=== PATIENT | female | born 1970 | race African-American/Black ===

== ENCOUNTER 2018-07-16 07:17 | Day surgery (SDC) | payer OTHER ==
[2018-07-16] MEDS ORDERED: IRON SUCROSE INJECTION 200 MG in SODIUM CHLORIDE 100 ML IVPB ONE (10:00)
[2018-07-16 11:05] LABS: BASO % 0.6 % (0-2.0); EOS % 2.1 % (0-4.5); HEMATOCRIT 30.4 % (32.4-45.2); HEMOGLOBIN 9.8 GM/dL (10.7-15.3); LYMPH % 20.2 % (8-40); MCH 27.2 pg (25.7-33.7); MCHC 32.2 g/dl (32.0-36.0); MEAN CELL VOLUME 84.4 fl (80-96); MEAN PLT VOLUME 8.7 fl (7.5-11.1); MONO % 5.5 % (3.8-10.2); NEUT % 71.6 % (42.8-82.8); PLATELET COUNT 253 K/MM3 (134-434); RDW 19.5 % (11.6-15.6); WHITE BLOOD COUNT 6.8 K/mm3 (4.0-10.0)
[2018-07-16 11:43] LABS: ALBUMIN 3.5 g/dl (3.4-5.0); ALK PHOS 72 U/L (45-117); ANION GAP 6 MMOL/L (8-16); BILIRUBIN,DIRECT < 0.2 mg/dL (0.0-0.2); BILIRUBIN,TOTAL 0.4 mg/dL (0.2-1); BLOOD UREA NITROGEN 10 mg/dL (7-18); CALCIUM 8.2 mg/dL (8.5-10.1); CHLORIDE 103 mmol/L (98-107); CO2 29 mmol/L (21-32); CREATININE 0.7 mg/dL (0.55-1.3); GLUCOSE,RANDOM 80 mg/dL (74-106); MAGNESIUM 2.2 mg/dL (1.8-2.4); POTASSIUM 3.4 mmol/L (3.5-5.1); SGOT/AST 21 U/L (15-37); SGPT/ALT 17 U/L (13-61); SODIUM 138 mmol/L (136-145); TOT PROT 7.6 g/dl (6.4-8.2)
[2018-07-16 14:39] VITALS: BP 126/75; PULSE 59; TEMP 97.8
[2018-07-17 08:07] LABS: SERUM IRON SATURATION 11 % (15-55); TOTAL IRON BINDING CAPACITY 426 ug/dL (250-450); UIBC 381 ug/dL (131-425)
== END 2018-07-16 13:30 | disposition home or self-care (01) ==
LOC: JONCNONCHE 07:17 → J7W 11:48 → JONCNONCHE 13:30
PROVIDERS: ATTEND Internal Medicine Hematology & Oncology
PROC: 3E033GC Introduction of Other Therapeutic Substance into Peripheral Vein, Percutaneous Approach (ICD-10-PCS; principal; 2018-07-16)
DX: D50.9 Iron deficiency anemia, unspecified (principal)
CPT/HCPCS: 36415; 80053; 80076; 82607; 82728; 83540; 83550; 83735; 85025; 96365; J1756

== ENCOUNTER 2018-07-23 07:38 | Day surgery (SDC) | payer OTHER ==
[2018-07-23] MEDS ORDERED: IRON SUCROSE INJECTION 200 MG in SODIUM CHLORIDE 100 ML IVPB ONE (10:00)
[2018-07-23 13:16] VITALS: BP 132/71; PULSE 74; TEMP 97.9
== END 2018-07-23 11:20 | disposition home or self-care (01) ==
LOC: JONCNONCHE 07:38 → J7W 10:12 → JONCNONCHE 11:20
PROVIDERS: ATTEND Internal Medicine Hematology & Oncology
PROC: 3E033GC Introduction of Other Therapeutic Substance into Peripheral Vein, Percutaneous Approach (ICD-10-PCS; principal; 2018-07-23)
DX: D50.9 Iron deficiency anemia, unspecified (principal)
CPT/HCPCS: 96365; J1756

== ENCOUNTER 2018-08-06 07:36 | Day surgery (SDC) | payer OTHER ==
[2018-08-06] MEDS ORDERED: IRON SUCROSE INJECTION 200 MG in SODIUM CHLORIDE 100 ML IVPB ONE (10:00)
[2018-08-06 10:51] VITALS: PULSE 76; TEMP 98.6
[2018-08-06 12:11] VITALS: BP 127/72
== END 2018-08-06 11:15 | disposition home or self-care (01) ==
LOC: JONCNONCHE 07:36 → J7W 09:53 → JONCNONCHE 11:15
PROVIDERS: ATTEND Internal Medicine Hematology & Oncology
PROC: 3E033GC Introduction of Other Therapeutic Substance into Peripheral Vein, Percutaneous Approach (ICD-10-PCS; principal; 2018-08-06)
DX: D50.9 Iron deficiency anemia, unspecified (principal)
CPT/HCPCS: 96365; J1756

== ENCOUNTER 2018-08-20 07:31 | Day surgery (SDC) | payer OTHER ==
[2018-08-20] MEDS ORDERED: IRON SUCROSE INJECTION 200 MG in SODIUM CHLORIDE 100 ML IVPB ONE (09:00)
[2018-08-20 11:04] LABS: BASO % 0.7 % (0-2.0); EOS % 3.8 % (0-4.5); HEMATOCRIT 34.5 % (32.4-45.2); HEMOGLOBIN 11.4 GM/dL (10.7-15.3); LYMPH % 41.3 % (8-40); MCH 30.7 pg (25.7-33.7); MCHC 33.2 g/dl (32.0-36.0); MEAN CELL VOLUME 92.4 fl (80-96); MEAN PLT VOLUME 8.6 fl (7.5-11.1); MONO % 8.8 % (3.8-10.2); NEUT % 45.4 % (42.8-82.8); PLATELET COUNT 188 K/MM3 (134-434); RBC 3.73 M/mm3 (3.60-5.2); RDW 18.7 % (11.6-15.6); WHITE BLOOD COUNT 3.5 K/mm3 (4.0-10.0)
[2018-08-20 14:08] VITALS: TEMP 97.6
[2018-08-20 14:09] VITALS: BP 136/84; PULSE 56
[2018-08-21 08:06] LABS: SERUM IRON SATURATION 22 % (15-55); TOTAL IRON BINDING CAPACITY 343 ug/dL (250-450); UIBC 266 ug/dL (131-425)
--- NOTE | 2018-08-23 17:18 | PN ---
Progress Note (short form) - Note Progress Note: discussed with patient -- iron studies f/u in 6 weeks
== END 2018-08-20 12:15 | disposition home or self-care (01) ==
LOC: JONCNONCHE 07:31 → J7W 10:45 → JONCNONCHE 12:15
PROVIDERS: ATTEND Internal Medicine Hematology & Oncology
PROC: 3E033GC Introduction of Other Therapeutic Substance into Peripheral Vein, Percutaneous Approach (ICD-10-PCS; principal; 2018-08-20)
DX: D50.9 Iron deficiency anemia, unspecified (principal)
CPT/HCPCS: 36415; 82607; 82728; 83540; 83550; 85025; 96365; J1756

== ENCOUNTER 2019-01-12 07:08 | Day surgery (SDC) | payer OTHER ==
[2019-01-12] MEDS ORDERED: FERRIC CARBOXYMALTOSE 750 MG in SODIUM CHLORIDE 250 ML IVPB ONE (10:00)
[2019-01-12 16:02] VITALS: BP 127/80; PULSE 57
[2019-01-12 16:04] VITALS: TEMP 98.5
== END 2019-01-12 10:57 | disposition home or self-care (01) ==
LOC: JONCNONCHE 07:08 → J7W 09:09 → JONCNONCHE 10:57
PROVIDERS: ATTEND Internal Medicine Hematology & Oncology
PROC: 3E033GC Introduction of Other Therapeutic Substance into Peripheral Vein, Percutaneous Approach (ICD-10-PCS; principal; 2019-01-12)
DX: D50.9 Iron deficiency anemia, unspecified (principal)
CPT/HCPCS: 96365; J1439

== ENCOUNTER 2019-01-19 07:07 | Day surgery (SDC) | payer OTHER ==
[2019-01-19] MEDS ORDERED: FERRIC CARBOXYMALTOSE 750 MG in SODIUM CHLORIDE 250 ML IVPB ONE (09:00)
[2019-01-19 15:19] VITALS: TEMP 98.8
[2019-01-19 15:21] VITALS: BP 126/79; PULSE 74
== END 2019-01-19 11:00 | disposition home or self-care (01) ==
LOC: JONCCHEMO 07:07 → J7W 10:08 → JONCCHEMO 11:00
PROVIDERS: ATTEND Internal Medicine Hematology & Oncology
PROC: 3E033GC Introduction of Other Therapeutic Substance into Peripheral Vein, Percutaneous Approach (ICD-10-PCS; principal; 2019-01-19)
DX: D50.9 Iron deficiency anemia, unspecified (principal)
CPT/HCPCS: 96365; J1439

== ENCOUNTER 2019-03-27 12:11 | Emergency (ER) | payer OTHER | END 2019-03-27 15:18 | disposition home or self-care (01) | LOC: JER 12:11 ==

== ENCOUNTER 2019-09-30 13:28 | Day surgery (SDC) | payer OTHER ==
[2019-09-30] MEDS ORDERED: FERRIC CARBOXYMALTOSE 750 MG in SODIUM CHLORIDE 250 ML IVPB ONE (14:00)
[2019-09-30 17:59] VITALS: BP 115/72; PULSE 70; TEMP 98
== END 2019-09-30 15:15 | disposition home or self-care (01) ==
LOC: JONCNONCHE 13:28 → J7W 14:18 → JONCNONCHE 15:15
PROVIDERS: ATTEND Internal Medicine Hematology & Oncology
PROC: 3E033GC Introduction of Other Therapeutic Substance into Peripheral Vein, Percutaneous Approach (ICD-10-PCS; principal; 2019-09-30)
DX: D50.9 Iron deficiency anemia, unspecified (principal)
CPT/HCPCS: 96365; J1439

== ENCOUNTER 2019-10-07 06:37 | Day surgery (SDC) | payer OTHER ==
[2019-10-07] MEDS ORDERED: FERRIC CARBOXYMALTOSE 750 MG in SODIUM CHLORIDE 250 ML IVPB ONE (09:45)
[2019-10-07 16:22] VITALS: BP 154/88; PULSE 69; TEMP 98.4
== END 2019-10-07 13:15 | disposition home or self-care (01) ==
LOC: JONCCHEMO 06:37 → JONCNONCHE 06:37 → J7W 12:03 → JONCNONCHE 13:15
PROVIDERS: ATTEND Internal Medicine Hematology & Oncology
PROC: 3E033GC Introduction of Other Therapeutic Substance into Peripheral Vein, Percutaneous Approach (ICD-10-PCS; principal; 2019-10-07)
DX: D50.9 Iron deficiency anemia, unspecified (principal)
CPT/HCPCS: 96365; J1439

== ENCOUNTER 2019-10-25 18:01 | Emergency (ER) | payer OTHER ==
[2019-10-25 18:48] VITALS: BP 141/82; PULSE 57; TEMP 98.2; BMI 34.3
--- NOTE | 2019-10-25 18:48 | PDOC ---
Rapid Medical Evaluation Chief Complaint: Chest Pain Medical Evaluation: Allergies Allergy/AdvReac Type Severity Reaction Status Date / Time ethinyl estradiol Allergy Verified 10/25/19 18:43 [From Seasonale ()] levonorgestrel Allergy Verified 10/25/19 18:43 [From e ()] 10/25/19 18:46 Pt c/o: erasto sharp shooting leg pain x 1 week also goes to her chest intermittently Pt on brief exam: no calf tenderness or leg edema Pt ordered for: ble duplex Pt to proceed to the ED Discharge Disposition - Diagnosis Leg pain, bilateral - Referrals - Patient Instructions - Post Discharge Activity
[2019-10-25] MEDS ORDERED: ACETAMINOPHEN 325 MG TABLET (FP) PO ONE (20:57)
[2019-10-25] MEDS ORDERED: ACETAMINOPHEN 325 MG TABLET (FP) ONE (20:59)
--- NOTE | 2019-10-25 21:22 | PDOC ---
History of Present Illness - General Chief Complaint: Chest Pain Stated Complaint: CHEST PAIN Time Seen by Provider: 10/25/19 20:48 - History of Present Illness Initial Comments: The pt is a 48F w/ a no reported PMH who presents for evaluation of BLE pain and subjective swelling for 1 week who was told by her PCP that she may have a DVT and should be evaluated for such. She has yet to undergo her duplex. She reports BLE thigh and knee pain that is worse with walking/movement/touch and she has not tried any medications for her pain. She has never had this happen before. She also reports chest pain described as tightness, non-radiating, intermittent , non-exertional, and not associated with anything she can identify. 10/25/19 21:19 Past History - Past Medical History Allergies/Adverse Reactions: Allergies Allergy/AdvReac Type Severity Reaction Status Date / Time ethinyl estradiol Allergy Verified 10/25/19 18:43 [From Seasonale ()] levonorgestrel Allergy Verified 10/25/19 18:43 [From ()] Home Medications: Ambulatory Orders NK [No Known Home Medication] 03/27/19 Anemia: Yes COPD: No - Immunization History Immunization Up to Date: Yes - Psycho Social/Smoking Cessation Hx Smoking History: Never smoked Information on smoking cessation initiated: No Hx Alcohol Use: No Drug/Substance Use Hx: No Review of Systems - Review of Systems Able to Perform ROS?: Yes Comments:: GENERAL/CONSTITUTIONAL: No fever or chills HEAD, EYES, EARS, NOSE AND THROAT: No change in vision. No change in hearing. No sore throat CARDIOVASCULAR: No chest pain or shortness of breath RESPIRATORY: Denies cough, hemoptysis GASTROINTESTINAL: No nausea, vomiting, diarrhea or constipation GENITOURINARY: No dysuria, frequency, or change in urination MUSCULOSKELETAL: B/l thigh and knee pain SKIN: No rash NEUROLOGIC: No headache, vertigo, loss of consciousness, or change in strength/ sensation ENDOCRINE: No increased thirst. No abnormal weight change HEMATOLOGIC/LYMPHATIC: No anemia, easy bleeding, or history of blood clots ALLERGIC/IMMUNOLOGIC: No hives or skin allergy 10/25/19 21:14 Is the patient limited Slovak proficient: No *Physical Exam - Vital Signs Last Vital Signs Temp Pulse Resp BP Pulse Ox 98.2 F 57 L 17 141/82 100 10/25/19 18:43 10/25/19 18:43 10/25/19 18:43 10/25/19 18:43 10/25/19 18:43 - Physical Exam GENERAL: Awake, alert, and oriented to person/place/time, in no acute distress HEAD: No signs of trauma, normoc ephalic, atraumatic EYES: PERRLA, EOMI, sclera anicteric, conjunctiva clear ENT: Hearing grossly normal, nares patent, oropharynx clear without exudates. Moist mucosa LUNGS: No distress, speaks in full sentences, clear to auscultation bilaterally HEART: Regular rate and rhythm, normal S1 and S2, no murmurs appreciated, peripheral pulses normal and equal bilaterally ABDOMEN: Soft, nontender, normoactive bowel sounds. No guarding, no rebound EXTREMITIES: b/l knee medial and lateral TTP w/o underlying bony crepitus, swelling, or erythema; ambulating and ED NEUROLOGICAL: Cranial nerves II through XII grossly intact. Normal speech, no focal sensorimotor deficits SKIN: Warm, Dry 10/25/19 21:17 ED Treatment Course - LABORATORY CBC & Chemistry Diagram: 10/25/19 21:15 10/25/19 21:15 - RADIOLOGY Radiology Studies Ordered: Category Date Time Status CHEST X-RAY PORTABLE* [RAD] Stat Radiology 10/25/19 20:57 Ordered - Medications Given in the ED: ED Medications Discontinued Medications Generic Name Dose Route Start Last Admin Trade Name Freq PRN Reason Stop Dose Admin Acetaminophen 975 mg 10/25/19 20:57 10/25/19 21:02 Tylenol - PO 10/25/19 20:58 975 mg ONCE ONE Administration Medical Decision Making - Medical Decision Making The pt is a 48F w/ a no reported PMH who presents for evaluation of BLE pain and subjective swelling for 1 week who was told by her PCP that she may have a DVT and should be evaluated for such. She also has one week of intermittent chest tightness ED Course BLE duplex CMP, CBC, Trop I 10/25/19 21:22 No leukocytosis Anemia noted, no indication to transfuse at this time 10/25/19 21:53 Remainder of labs and US pending Pt signed out to night team Discharge - Discharge Information Problems reviewed: Yes Clinical Impression/Diagnosis: Leg pain, bilateral Chest pain Qualifiers: Chest pain type: unspecified Qualified Code(s): R07.9 - Chest pain, unspecified - Admission No - Follow up/Referral Referrals: ON STAFF,NOT [Primary Care Provider] - - Patient Discharge Instructions Patient Printed Discharge Instructions: DI for Chest Pain - Post Discharge Activity Work/Back to School Note: Back to Work
[2019-10-25 21:23] LABS: BASO % 1.3 % (0-2.0); EOS % 5.6 % (0-4.5); HEMATOCRIT 31.6 % (32.4-45.2); HEMOGLOBIN 10.3 GM/dL (10.7-15.3); LYMPH % 39.9 % (8-40); MCH 29.8 pg (25.7-33.7); MCHC 32.7 g/dl (32.0-36.0); MEAN PLT VOLUME 8.2 fl (7.5-11.1); MONO % 7.4 % (3.8-10.2); NEUT % 45.8 % (42.8-82.8); PLATELET COUNT 208 K/MM3 (134-434); RBC 3.47 M/mm3 (3.60-5.2); RDW 21.5 % (11.6-15.6); WHITE BLOOD COUNT 4.3 K/mm3 (4.0-10.0)
[2019-10-25 21:53] LABS: BILIRUBIN,TOTAL 0.3 mg/dL (0.2-1); BLOOD UREA NITROGEN 10.2 mg/dL (7-18); CALCIUM 8.4 mg/dL (8.5-10.1); CREATININE 0.7 mg/dL (0.55-1.3); POTASSIUM 3.8 mmol/L (3.5-5.1); TOT PROT 7.5 g/dl (6.4-8.2)
[2019-10-25 22:34] LABS: ANISOCYTOSIS 2+; MACROCYTOSIS 1+
--- NOTE | 2019-10-25 23:05 | PDOC ---
Documentation entered by Akilah Dupont SCRIBE, acting as scribe for Aure Almaraz MD. Aure Almaraz MD: This documentation has been prepared by the Kiah hair Nirvannie, SCRIBE, under my direction and personally reviewed by me in its entirety. I confirm that the documentation accurately reflects all work, treatment, procedures, and medical decision making performed by me. Attending Attestation - Resident Resident Name: Clive Vazquez - ED Attending Attestation I have performed the following: I have examined & evaluated the patient, The case was reviewed & discussed with the resident, I agree w/resident's findings & plan, Exceptions are as noted - HPI HPI: 10/25/19 21:13 The patient is a 48 year old female, with a significant past medical history of anemia, who presents to the emergency department with blt LE pain described as a cramping onsetting in the left anterior radiating to the later then RLE with associated intermittent chest tightness. Patient was seen by her plastic surgeon today who advised her to report to the ED for r/o DVT. She denies any worsening or alleviating factors. She denies taking anything for the discomfort. She denies any exertional dyspnea, orthopnea, recent travel, or recent surgeries. Allergies: Ethinyl estradiol, Levonorgestrel Past surgical history: Blt breast reduction. x3. R knee arthroscopy. Social history: Nonsmoker. Denies EtOH use and recreational drug use. Primary Care Physician: Savage - Physicial Exam PE: 10/25/19 23:05 GENERAL: Well-appearing, well-nourished. No apparent distress. HEENT: Normocephalic, atraumatic. PERRL, EOM intact. CARDIOVASCULAR: Normal S1, S2. Regular rate and rhythm. PULMONARY: Clear to auscultation bilaterally. ABDOMEN: Soft, non-distended, non-tender. EXTREMITIES: Normal ROM in all four extremities. No gross deformities. SKIN: Warm, dry. No rash NEUROLOGICAL: No focal neurological deficits. - Medical Decision Making 10/26/19 00:05 This 48-year-old female had had 1 day of bilateral leg pain and she saw her primary care physician who wanted her to come to the emergency department to rule out clots in her legs She says she is also had chronic intermittent chest tightness but she has no acute shortness of breath, no substernal chest pain currently and no risk factors Duplex Dopplers of her 2 legs are negative for any deep vein thrombosis EKG did not show any ischemia Discharge - Discharge Information Problems reviewed: Yes Clinical Impression/Diagnosis: Leg pain, bilateral Chest pain Qualifiers: Chest pain type: unspecified Qualified Code(s): R07.9 - Chest pain, unspecified Condition: Stable Disposition: HOME - Admission No - Follow up/Referral Referrals: ON STAFF,NOT [Primary Care Provider] - - Patient Discharge Instructions Patient Printed Discharge Instructions: DI for Leg Pain, DI for Chest Pain Additional Instructions: Your ultrasound did not show any clots - Post Discharge Activity Work/Back to School Note: Back to Work
--- NOTE | 2019-10-26 09:52 | EKG ---
Test Reason : Blood Pressure : / mmHG Vent. Rate : 059 BPM Atrial Rate : 059 BPM P-R Int : 192 ms QRS Dur : 082 ms QT Int : 446 ms P-R-T Axes : 041 -07 016 degrees QTc Int : 441 ms SINUS BRADYCARDIA OTHERWISE NORMAL ECG NO PREVIOUS ECGS AVAILABLE Confirmed by SUKI ABDULLAHI, GINNA ([id number]) on 10/26/2019 9:52:13 AM Referred By: Confirmed By:GINNA COHN MD
== END 2019-10-25 23:10 | disposition home or self-care (01) ==
LOC: JER 18:01
DX: R07.9 Chest pain, unspecified (principal); M79.604 Pain in right leg; M79.605 Pain in left leg; Z86.2 Personal history of diseases of the blood and blood-forming organs and certain disorders involving the immune mechanism
CPT/HCPCS: 36415; 71045-TC-FY; 80053; 84484; 85025; 93005; 93010; 93970-TC; 99284-25

== ENCOUNTER 2020-11-02 19:53 | Emergency (ER) | payer OTHER ==
[2020-11-02 20:02] VITALS: BP 157/65; PULSE 76; TEMP 97; BMI 36.0
== END 2020-11-02 22:33 | disposition home or self-care (01) ==
LOC: JER 19:53
DX: K64.9 Unspecified hemorrhoids (principal)
CPT/HCPCS: 99283-25

== ENCOUNTER 2021-09-03 21:35 | Emergency (ER) | payer OTHER ==
[2021-09-03 22:13] VITALS: BP 150/83; PULSE 74; TEMP 97.8; BMI 35.6
[2021-09-03 22:57] LABS: BASO % 0.7 % (0-2.0); EOS % 6.2 % (0-4.5); HEMATOCRIT 21.2 % (32.4-45.2); LYMPH % 36.2 % (8-40); MCH 21.7 pg (25.7-33.7); MCHC 30.7 g/dl (32.0-36.0); MEAN CELL VOLUME 70.8 fl (80-96); MEAN PLT VOLUME 6.9 fl (7.5-11.1); MONO % 7.2 % (3.8-10.2); NEUT % 49.7 % (42.8-82.8); PLATELET COUNT 353 10^3/uL (134-434); RBC 2.99 M/mm3 (3.60-5.2); RDW 19.8 % (11.6-15.6); RETICULOCYTES 2.05 % (0.5-1.5); WHITE BLOOD COUNT 6.3 K/mm3 (4.0-10.0)
[2021-09-03 23:02] LABS: INR 1.07 (0.83-1.09)
[2021-09-03 23:04] LABS: ACTIVATED PTT 30.6 SECONDS (25.2-36.5); HEMOGLOBIN 6.5 GM/dL (10.7-15.3)
[2021-09-03 23:31] LABS: ANISOCYTOSIS 3+; MACROCYTOSIS 0
[2021-09-03 23:33] LABS: ALBUMIN 3.6 g/dl (3.4-5.0); BILIRUBIN,TOTAL 0.3 mg/dL (0.2-1); BLOOD UREA NITROGEN 9.8 mg/dL (7-18); CALCIUM 8.2 mg/dL (8.5-10.1); CREATININE 0.9 mg/dL (0.55-1.3); TOT PROT 7.4 g/dl (6.4-8.2)
== END 2021-09-04 00:07 | disposition home or self-care (01) ==
LOC: JER 21:35
DX: D50.0 Iron deficiency anemia secondary to blood loss (chronic) (principal)
CPT/HCPCS: 36415; 80053; 85025; 85045; 85610; 85730; 86850; 86900; 86901; 93005; 93010; 99283-25

== ENCOUNTER 2024-05-02 05:54 | Day surgery (SDC) | payer OTHER ==
[2024-04-29 08:46] VITALS: BMI 34.3
[2024-05-02] MEDS ORDERED: ONDANSETRON 4 MG/2 ML VIAL IVPUSH PRN (10:55)
[2024-05-02] MEDS ORDERED: oxyCODONE HCL 5 MG TABLET PO PRN ×2 (10:55→15:32)
[2024-05-02 14:02] LABS: HEMATOCRIT 27.9 % (32.4-45.2); HEMOGLOBIN 9.3 GM/dL (10.7-15.3); MCH 31.1 pg (25.7-33.7); MCHC 33.2 g/dl (32.0-36.0); MEAN CELL VOLUME 93.7 fl (80-96); MEAN PLT VOLUME 7.7 fl (7.5-11.1); PLATELET COUNT 291 10^3/uL (134-434); RBC 2.98 M/mm3 (3.60-5.2); RDW 13.8 % (11.6-15.6); WHITE BLOOD COUNT 5.4 K/mm3 (4.0-10.0)
[2024-05-02] MEDS ORDERED: LIDOCAINE HCL/PF 2% SDV 5ML VIAL ONE (14:57)
[2024-05-02] MEDS ORDERED: PROPOFOL 20 ML ONE (14:58)
[2024-05-02] MEDS ORDERED: MIDAZOLAM HCL 2 MG/2 ML SINGLE DOSE VIAL ONE (14:58)
[2024-05-02] MEDS ORDERED: DEXAMETHASONE SOD PHOSPHATE 4 MG/1 ML VIAL ONE (15:12)
[2024-05-02] MEDS: ceFAZolin SODIUM 1 GM VIAL IVPB ONE (15:12)
[2024-05-02] MEDS ORDERED: ceFAZolin SODIUM 1 GM VIAL ONE (15:12)
[2024-05-02] MEDS ORDERED: PROMETHAZINE HCL 25 MG/1 ML VIAL IVPB PRN (15:32)
[2024-05-02] MEDS ORDERED: ONDANSETRON 4 MG/2 ML VIAL ONE (15:33)
[2024-05-02] MEDS ORDERED: KETOROLAC TROMETHAMINE 30 MG/1 ML VIAL ONE (15:33)
[2024-05-02] MEDS: SILVER NITRATE 75% APPLIC STCK 1 PKT EACH TP ONE (15:37)
[2024-05-02] MEDS ORDERED: ACETAMINOPHEN INJECTION 100 ML IVPB ONE (15:59)
[2024-05-02] MEDS: ACETAMINOPHEN 1000 MG/100 ML BAG IVPB ONE (16:01)
[2024-05-02] MEDS: LACTATED RINGERS SOLUTION 1,000 ML IV SCH (16:02)
[2024-05-02 18:09] VITALS: RESP 18
[2024-05-02 18:16] VITALS: BP 136/74; PULSE 76; TEMP 97.1
== END 2024-05-02 18:46 | disposition home or self-care (01) ==
LOC: JASU-SURG 05:54
PROVIDERS: ATTEND Obstetrics & Gynecology
PROC: 0UDB8ZZ Extraction of Endometrium, Via Natural or Artificial Opening Endoscopic (ICD-10-PCS; principal; 2024-05-02 12:00)
DX: N92.1 Excessive and frequent menstruation with irregular cycle (principal); D25.9 Leiomyoma of uterus, unspecified; D64.9 Anemia, unspecified
CPT/HCPCS: 36415; 81025; 85027; 86850; 86900; 86901; 88305-TC; 94760; J0131

== ENCOUNTER 2024-08-05 18:20 | Inpatient (IN) | payer OTHER ==
[2024-08-05 18:28] VITALS: BMI 36.0
[2024-08-05 19:39] LABS: BASO % 0.7 % (0-2.0); HEMATOCRIT 18.1 % (32.4-45.2); LYMPH % 23.5 % (8-40); MCHC 32.7 g/dl (32.0-36.0); MEAN CELL VOLUME 88.5 fl (80-96); MEAN PLT VOLUME 6.9 fl (7.5-11.1); MONO % 5.6 % (3.8-10.2); NEUT % 69.2 % (42.8-82.8); PLATELET COUNT 313 10^3/uL (134-434); RBC 2.04 M/mm3 (3.60-5.2); RDW 17.8 % (11.6-15.6); WHITE BLOOD COUNT 7.4 K/mm3 (4.0-10.0)
[2024-08-05 20:01] LABS: CALCIUM 8.1 mg/dL (8.5-10.1)
[2024-08-05 20:02] LABS: ALBUMIN 3.6 g/dl (3.4-5.0); BLOOD UREA NITROGEN 9.2 mg/dL (7-18)
[2024-08-05 20:03] LABS: INR 0.98 (0.83-1.09); PROTHROMBIN TIME (PATIENT) 11.3 SEC (9.7-13.0)
[2024-08-05 20:04] LABS: HEMOGLOBIN 5.9 GM/dL (10.7-15.3)
[2024-08-05 20:05] LABS: CREATININE 0.9 mg/dL (0.55-1.3)
[2024-08-05 20:06] LABS: BILIRUBIN,TOTAL 0.3 mg/dL (0.2-1)
[2024-08-05 20:07] LABS: TOT PROT 6.8 g/dl (6.4-8.2)
[2024-08-05] MEDS ORDERED: POTASSIUM CHLORIDE TABS 20 MEQ TABLET.ER (FP) PO ONE (20:29)
[2024-08-05] MEDS ORDERED: MAGNESIUM 1GM/D5W - 1 GM/100 ML IVPB IVPB ONE (20:30)
[2024-08-05] MEDS: POTASSIUM CHLORIDE TABS 20 MEQ TABLET.ER (FP) PO ONE (20:37)
[2024-08-05] MEDS: MAGNESIUM 1GM/D5W - 1 GM/100 ML IVPB IVPB ONE (20:37)
[2024-08-05 21:03] LABS: HIV INTERPRETATION NEGATIVE (NEGATIVE)
[2024-08-06] MEDS ORDERED: POTASSIUM CHLORIDE TABS 20 MEQ TABLET.ER (FP) PO ONE (00:36)
[2024-08-06] MEDS: POTASSIUM CHLORIDE TABS 20 MEQ TABLET.ER (FP) PO ONE (00:45)
[2024-08-06 04:01] VITALS: RESP 18
[2024-08-06 08:58] LABS: POTASSIUM 3.9 mmol/L (3.5-5.1)
[2024-08-06 08:59] LABS: CALCIUM 7.8 mg/dL (8.5-10.1)
[2024-08-06 09:01] LABS: ALBUMIN 3.1 g/dl (3.4-5.0); BLOOD UREA NITROGEN 9.9 mg/dL (7-18)
[2024-08-06 09:03] LABS: HEMATOCRIT 22.4 % (32.4-45.2); HEMOGLOBIN 7.4 GM/dL (10.7-15.3); MCH 29.2 pg (25.7-33.7); MCHC 32.9 g/dl (32.0-36.0); MEAN CELL VOLUME 88.7 fl (80-96); MEAN PLT VOLUME 7.5 fl (7.5-11.1); PLATELET COUNT 266 10^3/uL (134-434); RBC 2.52 M/mm3 (3.60-5.2); RDW 16.2 % (11.6-15.6); WHITE BLOOD COUNT 6.9 K/mm3 (4.0-10.0)
[2024-08-06 09:04] LABS: CREATININE 0.7 mg/dL (0.55-1.3)
[2024-08-06 09:06] LABS: BILIRUBIN,TOTAL 0.6 mg/dL (0.2-1); TOT PROT 5.9 g/dl (6.4-8.2)
[2024-08-06] MEDS: FERROUS SO4 325 MG TABLET (FP) PO SCH (10:19)
[2024-08-06] MEDS: HYDROCHLOROTHIAZIDE 25 MG TABLET (FP) PO SCH (10:33)
[2024-08-06] MEDS: SODIUM CHLORIDE 1,000 ML IV SCH (11:19)
[2024-08-06] MEDS: medroxyPROGESTERone ACET 150 MG/1 ML VIAL IM ONE (11:40)
[2024-08-06] MEDS: SODIUM CHLORIDE 250 ML IV STA (15:11)
[2024-08-07 08:27] LABS: BASO % 0.5 % (0-2.0); EOS % 5.8 % (0-4.5); HEMATOCRIT 24.8 % (32.4-45.2); HEMOGLOBIN 8.3 GM/dL (10.7-15.3); LYMPH % 29.1 % (8-40); MCH 29.5 pg (25.7-33.7); MCHC 33.4 g/dl (32.0-36.0); MEAN CELL VOLUME 88.2 fl (80-96); MEAN PLT VOLUME 7.1 fl (7.5-11.1); MONO % 5.7 % (3.8-10.2); NEUT % 58.9 % (42.8-82.8); PLATELET COUNT 261 10^3/uL (134-434); RBC 2.82 M/mm3 (3.60-5.2); RDW 15.9 % (11.6-15.6); WHITE BLOOD COUNT 6.8 K/mm3 (4.0-10.0)
[2024-08-07 08:52] LABS: CALCIUM 8.1 mg/dL (8.5-10.1)
[2024-08-07 08:55] LABS: CREATININE 0.7 mg/dL (0.55-1.3)
[2024-08-07 09:07] VITALS: BP 112/59; PULSE 76; TEMP 98.6
[2024-08-07] MEDS: IRON SUCROSE INJECTION 200 MG in SODIUM CHLORIDE 100 ML IVPB ONE (11:24)
== END 2024-08-07 14:40 | disposition home or self-care (01) | DRG 663 ==
LOC: JER 18:20 → JERBED 20:08 → J6S 08-06 03:52
PROVIDERS: ADMIT Internal Medicine; ATTEND Internal Medicine
PROC: 30233N1 Transfusion of Nonautologous Red Blood Cells into Peripheral Vein, Percutaneous Approach (ICD-10-PCS; principal; 2024-08-06)
DX: D62 Acute posthemorrhagic anemia (principal); E66.01 Morbid (severe) obesity due to excess calories; I10 Essential (primary) hypertension; N92.0 Excessive and frequent menstruation with regular cycle; D25.9 Leiomyoma of uterus, unspecified; E87.6 Hypokalemia; Z68.36 Body mass index [BMI] 36.0-36.9, adult
CPT/HCPCS: 36415; 36430; 76830-TC; 80048; 80053; 84702; 85025; 85027; 85610; 85730; 86803; 87389; 93005; 93010; 99285-25; J1756; P9058

== ENCOUNTER 2024-09-03 18:34 | Inpatient (IN) | payer OTHER ==
[2024-09-03] MEDS ORDERED: ACETAMINOPHEN INJECTION 100 ML ONE (20:05)
[2024-09-03] MEDS: ACETAMINOPHEN 1000 MG/100 ML BAG IVPB ONE (20:22)
[2024-09-03 20:51] LABS: BASO % 0.3 % (0-2.0); EOS % 3.1 % (0-4.5); HEMATOCRIT 28.5 % (32.4-45.2); HEMOGLOBIN 9.4 GM/dL (10.7-15.3); LYMPH % 23.4 % (8-40); MCH 30.2 pg (25.7-33.7); MCHC 33.1 g/dl (32.0-36.0); MEAN CELL VOLUME 91.3 fl (80-96); MEAN PLT VOLUME 7.8 fl (7.5-11.1); MONO % 6.7 % (3.8-10.2); NEUT % 66.5 % (42.8-82.8); PLATELET COUNT 217 10^3/uL (134-434); RBC 3.13 M/mm3 (3.60-5.2); RDW 15.8 % (11.6-15.6); WHITE BLOOD COUNT 8.2 K/mm3 (4.0-10.0)
[2024-09-03 21:11] LABS: ACTIVATED PTT 31.7 SECONDS (25.2-36.5); INR 1.02 (0.83-1.09); PROTHROMBIN TIME (PATIENT) 11.5 SEC (9.7-13.0)
[2024-09-03] MEDS ORDERED: ACETAMINOPHEN 1000 MG/100 ML BAG IVPB PRN (23:42)
[2024-09-04 00:01] LABS: CHLORIDE 105 mmol/L (98-107); SODIUM 140 mmol/L (136-145)
[2024-09-04 00:03] LABS: CALCIUM 8.9 mg/dL (8.5-10.1)
[2024-09-04 00:04] LABS: ALBUMIN 3.6 g/dl (3.4-5.0); BLOOD UREA NITROGEN 8.6 mg/dL (7-18); CO2 28 mmol/L (21-32); GLUCOSE,RANDOM 102 mg/dL (74-106)
[2024-09-04 00:07] LABS: CREATININE 0.9 mg/dL (0.55-1.3); SGOT/AST 14 U/L (15-37); SGPT/ALT 24 U/L (13-61)
[2024-09-04 00:08] LABS: BILIRUBIN,TOTAL 0.2 mg/dL (0.2-1); TOT PROT 6.8 g/dl (6.4-8.2)
[2024-09-04 00:10] LABS: ALK PHOS 63 U/L (45-117)
[2024-09-04 00:22] VITALS: BMI 33.5
[2024-09-04 00:28] LABS: ANION GAP 7 mmol/L (4-13); POTASSIUM 2.9 mmol/L (3.5-5.1)
[2024-09-04] MEDS: POTASSIUM CHLORIDE ORAL LIQUID 20 MEQ/15 ML PO ONE (01:18)
[2024-09-04 07:58] LABS: BASO % 0.6 % (0-2.0); EOS % 4.4 % (0-4.5); HEMATOCRIT 25.2 % (32.4-45.2); HEMOGLOBIN 8.5 GM/dL (10.7-15.3); LYMPH % 27.5 % (8-40); MCH 30.7 pg (25.7-33.7); MCHC 33.8 g/dl (32.0-36.0); MEAN CELL VOLUME 90.6 fl (80-96); MEAN PLT VOLUME 7.7 fl (7.5-11.1); MONO % 7.2 % (3.8-10.2); NEUT % 60.3 % (42.8-82.8); PLATELET COUNT 201 10^3/uL (134-434); RBC 2.78 M/mm3 (3.60-5.2); RDW 15.8 % (11.6-15.6); WHITE BLOOD COUNT 5.9 K/mm3 (4.0-10.0)
[2024-09-04 08:14] LABS: POTASSIUM 3.9 mmol/L (3.5-5.1)
[2024-09-04 08:16] LABS: CALCIUM 8.6 mg/dL (8.5-10.1)
[2024-09-04 08:17] LABS: ALBUMIN 3.2 g/dl (3.4-5.0); BLOOD UREA NITROGEN 6.5 mg/dL (7-18); MAGNESIUM 2.1 mg/dL (1.8-2.4)
[2024-09-04 08:20] LABS: CREATININE 0.8 mg/dL (0.55-1.3); PHOSPHOROUS 3.6 mg/dL (2.5-4.9)
[2024-09-04 08:21] LABS: BILIRUBIN,TOTAL 0.4 mg/dL (0.2-1)
[2024-09-04 08:22] LABS: TOT PROT 6.2 g/dl (6.4-8.2)
[2024-09-04] MEDS ORDERED: POLYETHYLENE GLYCOL (HEALTHYLAX) 3350 17 GM PACKET PO PRN (10:37)
[2024-09-04] MEDS: FERROUS SO4 325 MG TABLET (FP) PO SCH (12:51)
[2024-09-04] MEDS: IRON SUCROSE INJECTION 100 MG in SODIUM CHLORIDE 95 ML IVPB ONE (13:55)
[2024-09-05] MEDS: SODIUM CHLORIDE 1,000 ML IV STA (06:30)
[2024-09-05 10:07] LABS: BASO % 0.4 % (0-2.0); HEMATOCRIT 23.6 % (32.4-45.2); HEMOGLOBIN 7.7 GM/dL (10.7-15.3); LYMPH % 23.1 % (8-40); MCH 30.3 pg (25.7-33.7); MCHC 32.4 g/dl (32.0-36.0); MEAN CELL VOLUME 93.6 fl (80-96); NEUT % 68.5 % (42.8-82.8); PLATELET COUNT 206 10^3/uL (134-434); RBC 2.53 M/mm3 (3.60-5.2); RDW 15.6 % (11.6-15.6); RETICULOCYTES 2.48 % (0.5-1.5); WHITE BLOOD COUNT 7.6 K/mm3 (4.0-10.0)
[2024-09-05] MEDS: IRON SUCROSE INJECTION 100 MG in SODIUM CHLORIDE 95 ML IVPB ONE (14:26)
[2024-09-05 16:23] LABS: ALBUMIN 3.2 g/dl (3.4-5.0); BILIRUBIN,TOTAL 0.3 mg/dL (0.2-1); BLOOD UREA NITROGEN 7.7 mg/dL (7-18); CALCIUM 8.1 mg/dL (8.5-10.1); CREATININE 0.8 mg/dL (0.55-1.3); POTASSIUM 3.5 mmol/L (3.5-5.1)
[2024-09-06 01:37] LABS: HEMATOCRIT 24.5 % (32.4-45.2); MCH 29.9 pg (25.7-33.7); MCHC 32.6 g/dl (32.0-36.0); MEAN CELL VOLUME 91.8 fl (80-96); MEAN PLT VOLUME 7.7 fl (7.5-11.1); PLATELET COUNT 203 10^3/uL (134-434); RBC 2.67 M/mm3 (3.60-5.2); RDW 16.3 % (11.6-15.6); WHITE BLOOD COUNT 8.9 K/mm3 (4.0-10.0)
[2024-09-06] MEDS: IRON SUCROSE INJECTION 100 MG in SODIUM CHLORIDE 95 ML IVPB ONE (10:04)
[2024-09-06 13:26] LABS: BASO % 0.3 % (0-2.0); EOS % 3.8 % (0-4.5); HEMATOCRIT 29.8 % (32.4-45.2); HEMOGLOBIN 9.6 GM/dL (10.7-15.3); LYMPH % 19.2 % (8-40); MCH 29.6 pg (25.7-33.7); MCHC 32.1 g/dl (32.0-36.0); MEAN CELL VOLUME 92.2 fl (80-96); MEAN PLT VOLUME 7.8 fl (7.5-11.1); MONO % 5.2 % (3.8-10.2); NEUT % 71.5 % (42.8-82.8); PLATELET COUNT 224 10^3/uL (134-434); RBC 3.23 M/mm3 (3.60-5.2); RDW 15.7 % (11.6-15.6); WHITE BLOOD COUNT 9.8 K/mm3 (4.0-10.0)
[2024-09-06 13:40] LABS: POTASSIUM 3.5 mmol/L (3.5-5.1)
[2024-09-06 13:44] LABS: ALBUMIN 3.3 g/dl (3.4-5.0)
[2024-09-06 13:45] LABS: BLOOD UREA NITROGEN 6.9 mg/dL (7-18)
[2024-09-06 13:46] LABS: CALCIUM 8.4 mg/dL (8.5-10.1); MAGNESIUM 2.2 mg/dL (1.8-2.4)
[2024-09-06 13:47] LABS: CREATININE 0.8 mg/dL (0.55-1.3); PHOSPHOROUS 2.4 mg/dL (2.5-4.9)
[2024-09-06 13:49] LABS: BILIRUBIN,TOTAL 0.8 mg/dL (0.2-1); TOT PROT 6.3 g/dl (6.4-8.2)
[2024-09-06 14:02] VITALS: RESP 18
[2024-09-06] MEDS: ACETAMINOPHEN 1000 MG/100 ML BAG IVPB PRN (18:12)
[2024-09-06 18:55] VITALS: BP 122/70; PULSE 94; TEMP 97.7
== END 2024-09-06 21:00 | disposition short-term general hospital (02) | DRG 663 ==
LOC: JER 18:34 → JERBED 22:05 → J5S 09-04 00:08 → OBSVTOIN 09-05 14:04
PROVIDERS: ADMIT Student in an Organized Health Care Education/Training Program; ATTEND Internal Medicine
PROC: 30233N1 Transfusion of Nonautologous Red Blood Cells into Peripheral Vein, Percutaneous Approach (ICD-10-PCS; principal; 2024-09-05)
DX: D64.9 Anemia, unspecified (principal); D25.9 Leiomyoma of uterus, unspecified; E87.6 Hypokalemia; N80.03 Adenomyosis of the uterus; N92.0 Excessive and frequent menstruation with regular cycle; N83.201 Unspecified ovarian cyst, right side; E66.9 Obesity, unspecified; Z68.33 Body mass index [BMI] 33.0-33.9, adult
CPT/HCPCS: 36415; 36430; 80053; 82728; 83540; 83550; 83735; 84100; 84702; 85025; 85027; 85045; 85610; 85660; 85730; 86850; 86900; 86901; 86922; 87635; 93005; 93010; 99285-25; G0378; J0131; J1756; P9038; P9058